=== PATIENT | female | born 1945 | race African-American/Black ===

== ENCOUNTER → 2019-03-08 | Day surgery (SDC) | payer OTHER ==
[~2019-03-08] MED LIST: AMLO5TAB10 PO; FLUT10SP NS; HYDR12.575 PO; HYDR200T5 PO; LIDOCAINE 2% PF 5 ML VIAL. ONE; PROPOFOL 20 ML IV ONE
[2019-03-08] MEDS: IV RINGERS,LACTATED 1000ML 1,000 ML IV SCH ×2 (07:00→08:25)
[2019-03-08 09:28] VITALS: BP 132/74
== END ==
LOC: ENDOS 07:49
PROVIDERS: ATTEND Internal Medicine Gastroenterology
DX: Z12.11 Encounter for screening for malignant neoplasm of colon (principal); K64.0 First degree hemorrhoids; K63.89 Other specified diseases of intestine; E11.9 Type 2 diabetes mellitus without complications; I10 Essential (primary) hypertension; K26.9 Duodenal ulcer, unspecified as acute or chronic, without hemorrhage or perforation; F15.90 Other stimulant use, unspecified, uncomplicated; Z80.0 Family history of malignant neoplasm of digestive organs; Z88.1 Allergy status to other antibiotic agents; Z88.8 Allergy status to other drugs, medicaments and biological substances; Z86.73 Personal history of transient ischemic attack (TIA), and cerebral infarction without residual deficits; Z72.89 Other problems related to lifestyle; Z98.51 Tubal ligation status; Z98.890 Other specified postprocedural states; Z79.84 Long term (current) use of oral hypoglycemic drugs
CPT/HCPCS: 45378; J2001; J2704